=== PATIENT | male | born 2000 | race African-American/Black ===

== ENCOUNTER 2020-08-08 12:26 | Emergency (ER) | payer MEDICAID ==
[~2020-08-08] VITALS: Ht 172.7 cm; Wt 88.9 kg
[2020-08-08 12:39] VITALS: BP 127/69
[2020-08-08] MEDS ORDERED: FLUORESCEIN SODIUM 1MG/STRIP LEFTEYE ONE (13:00)
[2020-08-08] MEDS ORDERED: TETRACAINE 0.5% OPHTH DROPS 4ML LEFTEYE ONE (13:00)
== END 2020-08-08 13:30 | disposition home or self-care (01) ==
LOC: ER 12:26
DX: H11.31 Conjunctival hemorrhage, right eye (principal)
CPT/HCPCS: 99283

== ENCOUNTER 2021-08-11 05:55 | Inpatient (IN) | payer MEDICAID ==
[~2021-08-11] VITALS: Ht 167.6 cm; Wt 89.4 kg
[2021-08-11] MEDS ORDERED: CLINDAMYCIN 600 MG in DEXTROSE 5% WATER 50 ML IV ONE (07:15)
[2021-08-11] MEDS ORDERED: CLINDAMYCIN 600MG PREMIX 50 ML IV SCH ×2 (07:30→22:00)
[2021-08-11 08:10] LABS: BASOPHILS % 0.9 % (0.0-2.0); EOSINOPHILS % 5.2 % (0.0-5.0); HEMATOCRIT. 43.8 % (42.0-52.0); HEMOGLOBIN. 14.5 g/dL (14.0-18.0); LYMPHOCYTES % 28.9 % (20.0-50.0); MEAN CORPUSCULAR HEMOGLOBIN 26.8 pg (28.0-32.0); MEAN PLATELET VOLUME 8.3 fl (7.4-10.4); PLATELET 306 x1000/uL (130-400); RED CELL DISTRIBUTION WIDTH 15.8 % (11.6-14.6)
[2021-08-11 08:13] LABS: CHLORIDE 105 mEq/L (98-107)
[2021-08-11 16:00] VITALS: BP 110/77
[2021-08-11 16:08] VITALS: BP 110/77
[2021-08-11 20:00] VITALS: BP 126/80
[2021-08-11] MEDS ORDERED: CLONIDINE 0.1MG TABLET PO PRN (20:45)
[2021-08-11] MEDS ORDERED: ONDANSETRON HCL 4MG/2ML INJ IV PRN (20:45)
[2021-08-11] MEDS ORDERED: CLINDAMYCIN 600 MG in DEXTROSE 5% WATER 50 ML IV SCH (20:45)
[2021-08-11] MEDS ORDERED: ACETAMINOPHEN 325MG TABLET PO PRN (20:45)
[2021-08-11] MEDS ORDERED: MAGNESIUM/ALUMINUM HYDROXIDE/SIMETHICONE 30ML UDC PO PRN (20:45)
[2021-08-11] MEDS ORDERED: ENOXAPARIN 40MG/0.4ML SYR SUBCUT SCH (21:00)
[2021-08-11] MEDS: CLINDAMYCIN 600MG PREMIX 50 ML IV SCH (23:54)
[2021-08-12] VITALS (7 sets, daily range): BP systolic 110–127; BP diastolic 60–72
[2021-08-12 07:27] LABS: CHLORIDE 104 mEq/L (98-107)
[2021-08-12 07:35] LABS: BASOPHILS % 0.8 % (0.0-2.0); HEMATOCRIT. 42.4 % (42.0-52.0); HEMOGLOBIN. 14.2 g/dL (14.0-18.0); LYMPHOCYTES % 21.3 % (20.0-50.0); MEAN CORPUSCULAR HEMOGLOBIN 27.2 pg (28.0-32.0); MEAN PLATELET VOLUME 8.5 fl (7.4-10.4); MONOCYTES % 10.2 % (2.0-8.0); NEUTROPHILS % 61.7 % (40.0-76.0); PLATELET 281 x1000/uL (130-400); RED BLOOD CELL COUNT 5.23 mill/uL (4.7-6.1); RED CELL DISTRIBUTION WIDTH 15.6 % (11.6-14.6)
[2021-08-12 07:43] LABS: PHOSPHORUS 3.9 mg/dL (2.5-4.9)
[2021-08-12] MEDS: CLINDAMYCIN 600MG PREMIX 50 ML IV SCH ×2 (08:58→15:51)
[2021-08-12] MEDS ORDERED: SULF1TAB48 MT (17:08)
== END 2021-08-12 19:14 | disposition home or self-care (01) | DRG 383 ==
LOC: ER 05:55 → 6EST 10:45 → ENRESERV 13:04
PROVIDERS: ADMIT Internal Medicine; ATTEND Internal Medicine
DX: L03.114 Cellulitis of left upper limb (principal); Z20.822 Contact with and (suspected) exposure to COVID-19; W57.XXXA Bitten or stung by nonvenomous insect and other nonvenomous arthropods, initial encounter; Z79.899 Other long term (current) drug therapy; Y93.89 Activity, other specified; Y92.89 Other specified places as the place of occurrence of the external cause; Y99.8 Other external cause status; Z91.018 Allergy to other foods
CPT/HCPCS: 36415; 71045; 80048; 80053; 80076; 83735; 84100; 85025; 87426; 93005; 93970; 99285; J1650; J3490; J7060

== ENCOUNTER 2024-12-18 22:09 | Emergency (ER) | payer MEDICAID ==
[~2024-12-18] VITALS: Ht 175.3 cm; Wt 70.0 kg
[~2024-12-18 22:09] MED LIST: SULF1TAB48 MT
[2024-12-18 22:10] VITALS: O2SAT 99
[2024-12-18] MEDS: IBUPROFEN 600MG TABLET PO ONE (23:11)
[2024-12-18] MEDS: AMOXICILLIN/POTASSIUM CLAVULANATE 875/125MG TAB PO ONE (23:11)
[2024-12-18] MEDS ORDERED: IBUP-2029 MT (23:39)
[2024-12-18] MEDS ORDERED: AMOX1TAB16 MT (23:39)
[2024-12-18] MEDS ORDERED: BO1 TP (23:39)
[2024-12-19 00:12] VITALS: BP 120/80; PULSE 74; RESP 18; TEMP 36.6; O2SAT 99
== END 2024-12-19 00:14 | disposition home or self-care (01) ==
LOC: ER 22:09
DX: S60.212A Contusion of left wrist, initial encounter (principal); S60.211A Contusion of right wrist, initial encounter; Z79.899 Other long term (current) drug therapy; W54.0XXA Bitten by dog, initial encounter; Y93.89 Activity, other specified; Y92.89 Other specified places as the place of occurrence of the external cause; Y99.8 Other external cause status
CPT/HCPCS: 73110; 99283; Z7610